=== PATIENT | female | born 1970 | race Caucasian/White ===

== ENCOUNTER 2017-06-25 13:12 | Emergency (ER) | payer BC, OTHER ==
[~2017-06-25] VITALS: Ht 162.6 cm; Wt 63.5 kg
[2017-06-25] MEDS ORDERED: PROZAC20 MG PO (13:16)
[2017-06-25] MEDS ORDERED: ADDERALL 20 MG20 M1 PO (13:27)
[2017-06-25] MEDS ORDERED: MOBIC7.5 MG PO (13:37)
[2017-06-25] MEDS ORDERED: PENICILLIN V P500 MG PO (13:37)
[2017-06-25] MEDS ORDERED: NORCO 5-325 TA1 EACH PO (13:39)
[2017-06-25 14:28] VITALS: BP 128/74
== END 2017-06-25 14:30 | disposition home or self-care (01) ==
LOC: ER 13:12
DX: K08.89 Other specified disorders of teeth and supporting structures (principal); F10.99 Alcohol use, unspecified with unspecified alcohol-induced disorder; Z90.710 Acquired absence of both cervix and uterus